=== PATIENT | female | born 1950 | race Caucasian/White ===

== ENCOUNTER → 2021-04-22 | Outpatient (CLI) | payer OTHER, MEDICARE ==
[~2021-04-22] MED LIST: APAP500 PO; ASPIR 8181 MG PO; CARDIZEM CD120 MG PO; CLARITIN10 MG PO; COUMADIN 2.5MG2.5 M1 PO; COUMADIN 5 MG TA5 M1 PO; ENOXAPARIN120 MG/0.1 PO; HYDROCODONE-APA1 TA1 PO; LASIX 40 MG TAB40 M2 PO; NASACORT10.8 ML NASAL; POTASSIUM20 PO; PROAIR HFA8.5 GM INH; PROBIOTIC1 EAC1 PO; SINGULAIR 10 MG10 M1 PO; SYMBICORT80 MCG/4.1 INH; TIKOSYN500 MCG PO; VITAMIN D34000 UNIT PO
== END ==
LOC: RAD 12:53
PROVIDERS: ATTEND Family Medicine
DX: M25.571 Pain in right ankle and joints of right foot (principal); G89.29 Other chronic pain